=== PATIENT | female | born 1935 | race Caucasian/White ===

== ENCOUNTER 2017-07-23 06:00 | Day surgery (SDC) | payer MEDICARE ==
[2017-07-22 12:01] VITALS: BMI 38.0
[2017-07-23] MEDS ORDERED: Lidocaine 1% w/Epinephrine 1:200K 30 ML VIAL ONE (06:34)
[2017-07-23] MEDS ORDERED: Clindamycin/D5W 600 mg/50 ml Premix Bag ONE (07:09)
[2017-07-23] MEDS ORDERED: Fentanyl 250 MCG/5 ML VIAL ONE (07:17)
[2017-07-23] MEDS ORDERED: Midazolam HCl 2 mg/2 ml Vial ONE (07:19)
[2017-07-23] MEDS ORDERED: PROPOFOL 200 MG/20 ML VIAL ONE (08:40)
--- NOTE | 2017-07-23 08:56 | OP ---
DATE OF PROCEDURE: 07/23/2017 PREOPERATIVE DIAGNOSIS: Right carpal tunnel syndrome. POSTOPERATIVE DIAGNOSIS: Right carpal tunnel syndrome. SURGEON: Shamar Bush M.D. ANESTHESIA: TIVA. BLOOD LOSS: Minimal. SPECIMEN: None. DRAINS: None. COMPLICATIONS: None. PROCEDURE IN DETAIL: After appropriate consent was obtained, the patient was taken to the operating room where TIVA anesthesia was induced. The arm was prepped and draped in the sterile fashion. The a rm was exsanguinated. The tourniquet was inflated to 250 mmHg. A longitudinal incision was made. Hemo stasis obtained. Dissection was carried down to the transverse carpal ligament. The transverse carpal ligament was incised. Hemostat was placed deep in the transverse carpal ligament. The knife was used to cut down unto the ligament and hemostat. Care was taken to protect the contents of the carpal canal. Attention was then turned proximally. Metzenbaum scissors were used to release the carp al ligament into the forearm fascia. The carpal tunnel was palpated. There were no masses. The tourni quet was released. Hemostasis was obtained. Copious irrigation performed. The skin was closed with 4 -0 Nylon. A sterile dressing was applied and the patient was placed in a splint. There are no complic ations.
== END 2017-07-23 09:55 | disposition home or self-care (01) ==
LOC: SDC 06:00
PROVIDERS: ATTEND Orthopaedic Surgery
PROC: 01N50ZZ Release Median Nerve, Open Approach (ICD-10-PCS; principal; 2017-07-23)
DX: G56.01 Carpal tunnel syndrome, right upper limb (principal); Z88.0 Allergy status to penicillin; Z88.1 Allergy status to other antibiotic agents; Z98.890 Other specified postprocedural states
CPT/HCPCS: J2250; J2704; J3010; J3490